=== PATIENT | female | born 1985 | race Caucasian/White ===

== ENCOUNTER 2022-04-17 21:05 | Emergency (ER) | payer OTHER ==
[~2022-04-17] VITALS: Ht 177.8 cm; Wt 88.4 kg
[2022-04-17 21:15] VITALS: BP 138/96
[2022-04-17] MEDS ORDERED: RX-MUPIROCIN (BACTROBAN) 2% OINT 22 GM TUBE TOP STA (21:59)
[2022-04-17] MEDS ORDERED: RX-TRIMETH/SULFA. 160-800 MG (BACTRIM DS) TAB PPK#2 PO STA (21:59)
--- NOTE | 2022-04-17 22:06 | ED Integumentary General ---
General Chief Complaint: Skin/Wound Problems Stated Complaint: BLACK BUMP ON BREAST History of Present Illness Date Seen by Provider: Apr 17, 2022 Time Seen by Provider: 21:30 Initial Comments 36 year old female presents for possible spider bite to right breast. Patient reports after showering tonight she noticed a small irritated area and inflammation to her right breast, central area dark in color. She did not notice this earlier in the day and no active drainage. She denies seeing any spiders in her home or work. No history of MRSA. No previous mammograms. Timing/Duration: this evening Severity: mild Location: torso (right breast) Possible Cause: no cause identified Associated Symptoms: change in skin texture; No fever, No rash (REGNIA VIVAR) Allergies and Home Medications Allergies Coded Allergies: No Known Drug Allergies (Unverified , 04/17/22) Patient Home Medication List Home Medication List Reviewed: Yes (REGINA VIVAR) Sulfamethoxazole/Trimethoprim (Bactrim Ds Tablet) 1 Each Tablet, 1 EACH PO BID Prescribed by: REGINA VIVAR on 04/17/222209 Review of Systems Review of Systems Constitutional: no symptoms reported, see HPI Skin: see HPI, change in color, lumps (right breast); No pruritus, No rash (REGINA VIVAR) All Other Systems Reviewed Negative Unless Noted: Yes (REGINA VIVAR) Past [id number]-[id number] Hx Family Medical History Reviewed Nursing Family Hx (REGINA VIVAR) Physical Exam Vital Signs Vital Signs - First Documented 04/17/22 21:15 Temp 36.2 Pulse 84 Resp 18 B/P (MAP) 138/96 (110) Pulse Ox 100 O2 Delivery Room Air (BRYAN,LINCOLN K DO) Vital Signs Capillary Refill : (REGINA VIVAR) General Appearance: WD/WN, no apparent distress Cardiovascular: normal peripheral pulses, regular rate, rhythm Respiratory: chest non-tender, lungs clear, normal breath sounds Neurologic/Psychiatric: alert, normal mood/affect, oriented x 3 Skin: normal color, warm/dry Skin Problem Location: torso (right breast) Skin Problem Character: abscess ( at 7 o'clock on right breast: small area of erythema, trace induration/fluctuance, dark area at center. No specific puncture site. Nontender. ) Lymphatic: no adenopathy; No axilla node tender (R) (REGINA VIVAR) Progress/Results/Core Measures Results/Orders Vital Signs/I&O 04/17/22 21:15 Temp 36.2 Pulse 84 Resp 18 B/P (MAP) 138/96 (110) Pulse Ox 100 O2 Delivery Room Air (LINCOLN ADAMS DO) Progress Progress Note : Time: 21:30 Progress Note patient assessed. Skin cleansed with chlorhexadine, 20G needle used to make small puncture, trace purulent discharge. Culture obtained. Area irrigated with sterile saline. 2x2 dressing placed. Discharge instructions and return precautions. (REGINA VVIAR) Departure Impression Primary Impression: Abscess of right breast Disposition: HOME, SELF-CARE Condition: Improved Departure-Patient Inst. Decision time for Depature: 21:50 (REGINA VIVAR) Referrals: [facility] (PCP/Family) Primary Care Physician Patient Instructions: Abscess Incision and Drainage (DC), Spider Bites Add. Discharge Instructions: Clean area with peroxide and apply antibiotic ointment three times daily. Keep area covered with bandaid or gauze, to avoid irritation with your bra. Take antibiotics, as prescribed. Follow up at [facility] for wound check in 24-48 hours. We will call you with the culture results. Do not apply heat to area. All discharge instructions reviewed with patient and/or family. Voiced understanding. Scripts Sulfamethoxazole/Trimethoprim (Bactrim Ds Tablet) 1 Each Tablet 1 EACH PO BID, #14 TAB 0 Refills Prov: REGINA VIVAR 04/17/22 ATTENDING PHYSICIAN NOTE: I WAS PHYSICALLY PRESENT ER PHYSICIAN, BUT I WAS NOT INVOLVED IN ANY DECISION MAKING OR ANY CARE OF THIS PATIENT, AND I AM NOT COLLABORATING PHYSICIAN. (LINCOLN ADAMS DO) REGINA VIVAR Apr 17, 2022 22:06 LINCOLN ADAMS DO Apr 18, 2022 01:53
[2022-04-17] MEDS ORDERED: SULF1TAB38 PO (22:10)
== END 2022-04-17 22:14 | disposition home or self-care (01) ==
LOC: ER 21:09
DX: N61.1 Abscess of the breast and nipple (principal); Z28.311 Partially vaccinated for COVID-19
CPT/HCPCS: 87070; 87077; 87186; 87205; 99283